=== PATIENT | female | born 1975 | race Caucasian/White ===

== ENCOUNTER 2025-02-13 15:06 | Outpatient (AMB) | payer BC, SELFPAY ==
--- OUTSIDE RECORDS SUMMARY | 2016-05-26 07:00 | XMS_ITS | Continuity of Care Document ---
Author Organization [id number] Address [address] [place] [address] Phone Care Team Providers Care Script Manager Name Role Phone Melany Woodward DO Unavailable Unavailab le Allergies, Adverse Reactions, Alerts Substance Reaction Status Criticality No Known Allergies Active No Inform ation Medications Medication Instructions Dosage Effective Dates (start - stop) Status Comments Depo-Provera 150 mg/mL intramuscular suspension inject 1 milliliter by intramuscular route every 3 months 150 MG - Active FLUDROCORTISONE ACETATE (unknown strength) take 1 tablet by oral route every day Not Available - Active 0.15 mg qd A-HYDROCORT (unknown strength) Not Available - Active 17.5 mg qd Flexeril 10 mg tablet take 1 tablet by oral route every evening 10 MG - Active Plaquenil 200 mg tablet take 1 tablet by oral route every 2 days 200 MG - Active prednisone 5 mg tablet take 1 tablet by oral route every day 5 MG - Active warfarin 7.5 mg tablet take 1 tablet by oral route every day 7.5 MG - Active 7.5 Wednesday - 10mg Wed,Wed LIQUID CALCIUM 600-VIT D3 (unknown strength) Not Available - Active calcium vitamin D600mg/800 iu qd Procedures Procedure Date PREVENTIVE MED ESTABLISHED PT 40-64YRS F OFFICE/OUTPT EM EST DETAILED/MODERATE 25 MINS OFFICE/OUTPT EM EST COMPREHENSIVE/HIGH 4 0 MINS OFFICE/OUTPT EM EST NURSE MINIMAL 5 MINS SPECIAL REPORTS OR FORMS OFFICE/OUTPT EM EST NURSE MINIMAL 5 MINS IMMUNIZATION ADMIN SUBQ/IM 1 VACCINE Jan FLU VAC NO PRSV 4 KAZ 3 YRS+ OFFICE/OUTPT EM EST COMPREHENSIVE/HIGH 4 0 MINS SPECIAL REPORTS OR FORMS OFFICE/OUTPT EM EST NURSE MINIMAL 5 MINS OFFICE/OUTPT EM EST COMPREHENSIVE/HIGH 4 0 MINS SPECIAL REPORTS OR FORMS Results Test Name Date and Time Measure Units Reference Range Abnormal Flag Status Comments Panel Description: CBC With Differential/Platele t Final Final Panel Description: Comp. Metabolic Panel (14) F inal Final Panel Description: Lipid Panel Final Final Panel Description: Prothrombin Time (PT) Final Final Panel Description: Calcidiol [Mass/volume] in Se rum or Plasma Final Final Advance Directives Directive Yes / No Effective Date File Name No Information Encounters Encounter Description Practice Location Reason(s) For Visit Diagnoses Date Provider Providers Copied on Encounter PREVENTIVE MED ESTABLISHED PT 40-64YRS [id number] [facility], [address], [place], [place], [facility], tel:[phone] [facility] [employer] physical (chief complaint) Body mass index (BMI) 33.0-33.9, adultPhysical examScreening for breast cancerAntiphos pholipid syndrome 7 Trace Mosley. [address] [facility], [address], [id number], [place]. tel:[phone] Referring Provider: Melany Ann, [address], [address] . tel:[phone] OFFICE/OUTPT EM EST DETAILED/MOD ERATE 25 MINS [id number] [facility], [address], [place], [address], tel:[phone] [facility] Follow Up of abdominal pain (chief complaint) Calculus of gallbladder and bile duct with acute and chronic cholecystitis without obstructionEnc ounter for Depo-Provera contraception 6 Trace Mosley. [address] [facility], [facility] [address], [place], [place], [id number], [place]. tel:[phone] Referring Provider: Melany Ann, [address] [facility] [address], [place], [address] . tel:[phone] OFFICE/OUTPT EM EST COMPREHENSIV E/HIGH 40 MINS [id number] [facility], [address], [place], [facility], [place] tel:[phone] [facility] flank pain (chief complaint) Kidney stoneGallstone sScreening for cervical cancer 6 Trace Mosley. [address] [facility] [address], [place], [place], [id number], [place]. tel:[phone] Referring Provider: Melany Ann, [address] [facility] [address], [place], [address] . tel:[phone] OFFICE/OUTPT EM EST NURSE MINIMAL 5 MINS [id number] [facility], [address], [place], [address], [place] tel:[phone] [facility] Lab and Depo shot (chief complaint) No Information 6 Trace Mosley. [address] [facility] [address], [place], [place], [id number], [place]. tel:[phone] Referring Provider: Melany Ann, [address] [facility] [address], [place], [address] . tel:[phone] OFFICE/OUTPT EM EST NURSE MINIMAL 5 MINS [id number] [facility], [address], [place], [address], [place] tel:[phone] [facility] [place] [facility] Depo provera (chief complaint)flu shot (chief complaint) Encounter for management and injection of depo-ProveraNe eds flu shot 5 Trace Mosley. [address] [facility], [facility] [address], [place], [place], [id number], [place]. tel:[phone] Referring Provider: Melany Ann, [address] [facility] [address], [place], [address] . tel:[phone] OFFICE/OUTPT EM EST COMPREHENSIV E/HIGH 40 MINS [id number] [facility], [address], [place], [facility], [place] tel:[phone] [facility] Follow Up of antiphospholipi d antibody syndrome (chief complaint) Antiphospholip id antibody syndrome 5 Trace Mosley. [address] [facility], [facility] [address], [place], [place], [id number], [place]. tel:[phone] Referring Provider: Melany Ann, [address], [address] . tel:[phone] OFFICE/OUTPT EM EST NURSE MINIMAL 5 MINS [id number] [facility], [address], [place], [address], [place] tel:[phone] [facility] [place] [facility] Depo shot (chief complaint) Encounter for management and injection of depo-Provera 5 Marshajay Mosley. [address] [facility], [facility] [address], [place], [place], [address], [place]. tel:[phone] Referring Provider: Melany Ann, [address] [facility] [address], [place], [address] . tel:[phone] OFFICE/OUTPT EM EST COMPREHENSIV E/HIGH 40 MINS [id number] [facility], [address], [place], [address], [place] tel:[phone] [facility] antiphospholipi d antibody syndrome (chief complaint)lupus (chief complaint)adren al insufficiency (chief complaint) Antiphospholip id antibody syndromeLupusA drenal insufficiencyL ipid screening 201 [address] Mosley. [address] [facility], [facility] [address], [place], [place], [address], . tel:[phone] Referring Provider: Melany Ann, [address] [facility] [address], [place], [address] . tel:[phone] Family History Family Member Type Diagnosis Age At Onset Sister Problem (finding) Alive and well Father Problem (finding) Alive and well Mother Problem (finding) Alive and well Immunizations Vaccine Date Status Comments Influenza, seasonal, injectable administered Source: New Immuniza tion Record Payers Payer name Insurance type Covered constitution party ID Authoriza tion(s) [facility] [id number] [facility] CI [id number] Social History Type Description Quantity Date Captured Comments Alcohol Use Details Caffeine Use Details Unknown Tobacco Use Status Never smoked tobacco 2016 Smoking Status Never smoker Non-Smoking Tobacco Use Details : No Details Available : No Details Available Sex Female Chief Complaint And Reason For Visit From encounter dated '05/26/2016 12:00'. physical (chief complaint). Description: Due BW, pap, mammo. No CAD in family. Reason For Referral Reason For Referral No Information Plan Of Treatment Date Type Action Status Patient Education Learning About Physical Activity completed Patient Education Ultrasound of the Abdom en: About This completed Patient Education Taking Warfarin Safely: After Your Vis completed Patient Education Implant for Contr ol: After Your completed Patient Education Antiphospholipid Syndro me: After Your completed Future Order: Lab Order PT, INR ([id number]), Sent on: , Sent on: Sent Future Order: Lab Order Thyroid Profile II ([id number]), Sent on: Sent Future Order: Lab Order TSH ([id number]), Sen t on: Sent Future Order: Lab Order CBC With Differential/Platelet ([id number]), Sent on: Sent Future Order: Lab Order Comp. Me tabolic Panel (14) ([id number]), Sent on: Sent Future Order: Lab Order PT, INR ([id number]), Sent on: Sent Future Order: Lab Order Lipid Pa raisa ([id number]), Sent on: Sent Future Order: Lab Order Vitamin D 25-Hydroxy, D2 + D3 ([id number]), Sent on: Sent History Of Present Illness Encounter Date Complaint History Of Prese nt Illness physical Due BW, pap, steven mo. No CAD in family. Follow Up of abdominal pain Onse t: 1 Month. The severity of the problem is moderate. The problem has not changed. The symptoms are recurring. The location is diffuse. The quality of the pain is burning. These symptoms occur after meals. The patient denies aggravating factors. The patient denies relieving factors. Associated symptoms include back pain. Pertinent negatives include dyspnea, heartburn, hematuria, rash, vaginal discharge, weight gain and weight loss.Additional information: Chronic cholycystitis. flank pain Onset: gradually . Pain level is moderate-severe. Duration is > 1 hour. The problem occurs intermittently and is getting worse. Location of pain is right flank. Prior stone type includes calcium oxalate. Symptom is aggravated by lying. There is radiation to the abdomen. Context includes history of prior stone(s) and hx gall stones. No recent ER visit was made. There are no relieving factors. There are no associated symptoms. Pertinent negatives include dysuria, hematuria and vomiting. Lab and Depo shot Depo provera flu shot Follow Up of antipho spholipid antibody syndrome The symptoms began year ago and generally lasts day. The symptoms are reported as being moderate. The symptoms occur constantly. Aggravating factors include nothing. Relieving factors include medication. She states the symptoms are chronic. Managed by specialists. Needs PT/INR. Depo shot adrenal insufficiency She states the symptoms are chronic and are controlled. lupus Severity level i s moderate. Systems involved include pulmonary. It occurs randomly. The problem is flaring up. Risk factors include child bearing age and female gender. Relieving factors include corticosteroids and immunosuppressants. Relevant history includes positive phospholipid antibodies. Additional information: Followed by specialist. Recent flare ups antiphospholipid antibody syndro me The symptoms are reported as being moderate. The symptoms occur daily. She states the symptoms are chronic and are fairly controlled. Follows with specialists. On coumadin. due PT/INR Functional Status Date Functional Assessmen t No Information Instructions Date Instruction Additional Infor mation No Information Assessments Type Assessment Date No Information Mental Status Date Cognitive Assessment Orientation - [place] ed to time, place, person, situation. Patient Care Teams Name Effective Dates (start - stop) Status Members No Information
--- OUTSIDE RECORDS SUMMARY | 2022-01-01 07:11 | XMS_ITS | Encounter Summary ---
Author Organization [facility] Address [address] [place] [address] Care Team Providers Care Glove Machine Operator Name Role Phone Melany Woodward DO Primary Care Provider + Encounter Details Date Type Department Care Team (Late st Contact Info) Description 01/01/2022 8:11 AM EDT Hospital Encounter [facility] [address] [place] [phone] Leon Mueller MD [address] [place], [place] [id number] Social History Tobacco Use Types Packs/Day Years Used Date Smoking Tobacco: Never Smokeless Tobacco: Never Alcohol Use Standard Drinks/Week Comments Yes 0 (1 standard drink = 0.6 oz pur e alcohol) rarely Housing Instability Answer Date Recorde d Are you worried that in the next 2 months you may not have stable housing? No 02/22/2024 Food Access & Nutrition Answer Date Rec orded Do you have access to a vari ety of food including fruits and vegetables? Yes 02/22/2024 Access to Healthcare Answer Date Record ed Within the last 3 months, arian valdez many times did you visit the emergency department for your medical care? 0 02/22/2024 Health Literacy Answer Date Recorded How often do you need to hav e someone help you when you read instructions, pamphlets, or other written material from your doctor or pharmacy? Never 02/22/2024 Caregiver: How often do you need to have someone help you when you read instructions, pamphlets, or other written material from your doctor or pharmacy? Not on file 02/22/2024 Financial Risk Answer Date Recorded How hard is it for you to pa y for the very basics like food, housing, medical care, and air conditioning / heating? Hard 02/22/2024 Transportation Answer Date Recorded Has the lack of transportati on kept you from meetings, work, or from getting things needed for daily living? No Has the lack of transportati on kept you from medical appointments or from getting medications? No 02/22/2024 Social Isolation Answer Date Recorded How often do you feel lonely or isolated from th ose around you? Rarely 02/22/2024 Food Risk Answer Date Recorded Within the past 12 months we worried whether our food would run out before we got money to buy more. Sometimes true 024 Within the past 12 months th e food we bought just didn't last and we didn't have money to get more. Never true 02/22/2024 Interpersonal Safety Answer Date Record ed Physical Abuse Unrecognized value 07/14/2023 Verbal Abuse Unrecognized value 07/14/2023 Comments No Sex and Gender Information Value Date Recorded Sex Assigned at Female 03/20/2024 9:27 AM EST Legal Sex Female 2:00 PM EDT Gender Identity Female 03/20/2024 9:27 AM EST Sexual Orientation Not on file Occupation Industry Job Start Date Job End Date [employer] Not on file Not on file Not on file COVID-19 Exposure Response Date Recorded In the last 10 days, have yo u been in contact with someone who was confirmed or suspected to have Coronavirus/COVID-19? No / Unsure 10/01/2022 12:55 PM EDT documented as of this encounter Plan of Treatment Upcoming Encounters Date Type Department Care Team (Late st Contact Info) Description 02/14/2025 11:15 AM EST Consult Pulmonology - [place] [address] [facility] [address] [place] [address] Jana Corona MD [address] [place] [phone] 04/03/2025 11:00 AM EST Office Visit Adult Medicine [facility] [address] [place], [place] [phone] Carlito Pelaez MD [address] [place], [place] documented as of this encounter Visit Diagnoses Not on filedocumented in this encounter Care Teams Glove Machine Operator Relationship Specialty Start Date End Date Melany Woodward DO PCP - General 12/12/21 05/07/22 documented as of this encounter
[2025-02-13 15:10] VITALS: BP 112/74; PULSE 103; O2SAT 97; BMI 33.4
--- NOTE | 2025-02-13 15:10 | HO.NEPHOV_ITS ---
Vital Signs 02/13/25 15:10 Height 5 ft 5 in Weight 201 lb BMI 33.4 BP 112/74 Blood Pressure Location Lt brachial Position Sitting Pulse 103 H Pulse Source Pulse Oximeter Pulse Oximetry (%) 97 Oxygen Delivery Method Room Air Intake Visit Reasons: Ext systemic lupus erythematosus Qa Software Tester Required: No Accompanied by: Self / Same As Patient Allergies cephalexin Allergy (Unknown, Verified 02/13/25 15:12) Unknown nitrofurantoin Allergy (Unknown, Verified 02/13/25 15:12) Unknown Medication List - Last Reconciled 02/13/25 by Jose Daniel Bruce MD belimumab (Benlysta) 200 mg subcut QWEEK fludrocortisone 0.1 mg PO DAILY hydrocortisone 20 mg PO DAILY mycophenolate mofetil 1,000 mg PO BID prednisone 5 mg PO DAILY PRN warfarin 5 mg PO DAILY warfarin 1 mg PO DAILY HPI Comments Details: 49-year-old woman with a history of SLE referred for establishing nephrology care She was diagnosed with antiphospholipid antibody syndrome of the age of 13. Subsequently she was diagnosed with SLE. She has had multiple blood clots. History of adrenal insufficiency. History of renal stones. History of normal renal function. No significant hematuria or proteinuria in the past. History of 4 miscarriages. Currently she is on anticoagulation she has been under the care of diploma pharmacy technician and is currently on Benlysta and mycophenolate mofetil. She is on prednisone p.r.n.. History of prednisone use in the past. History of osteopenia last bone density testing was few years ago She has recently moved from [place]. [facility] Medical History (Updated 02/13/25 @ 15:28 by Jose Daniel Bruce MD) History of kidney stones SLE (systemic lupus erythematosus related syndrome) Pulmonary fibrosis Protein S deficiency Prediabetes Osteopenia Obesity NSIP (nonspecific interstitial pneumonitis) Microscopic hematuria History of pulmonary embolism Coumadin syndrome Antiphospholipid syndrome Adrenal insufficiency, primary Review of Systems Const Reports as per HPI, Denies anorexia, Denies fatigue, Denies fever(s) and Denies headache(s) Eyes Denies blurry vision ENT Denies headache(s) Card Denies chest pain, Denies pedal edema and Denies dyspnea Resp Denies cough, Denies hemoptysis and Denies dyspnea GI Denies diarrhea, Denies nausea and Denies vomiting Denies hematuria, Denies urinary frequency and Denies urinary hesitancy Neuro Denies confusion, Denies headache(s) and Denies focal weakness Psych Denies confusion Endo Denies cold intolerance, Denies fatigue and Denies polyuria Physical Exam Vital Signs: Last Vital Signs Pulse 103 H 02/13/25 15:10 BP 112/74 02/13/25 15:10 Pulse Ox 97 02/13/25 15:10 Oxygen Delivery Method Room Air 02/13/25 15:10 BMI result Body Mass Index 33.4 Const General: No confusion Nutritional Appearance: well nourished Orientation/consciousness: No confusion HEENT Head: No normal to inspection Mouth: moist mucous membranes Neck Neck: Yes supple and Yes no JVD Resp Auscultation: clear to auscultation bilaterally, no rales and No rub present Cardio Jugular venous distension: no JVD Palpation: no palpable S3 and no palpable S4 Heart sounds: no rubs GI Palpation (GI): Soft to palpation and nontender Percussion: No Fluid wave present General: Yes no CVA tenderness Back/Spine/Pelvis Back: no CVA tenderness Skin General skin exam: no rashes or lesions noted Neuro General: No confusion Extrem General: Yes no pedal edema and No clubbing Results Reviewed Results Reviewed: December 2024 Urine protein creatinine ratio 0.18. Serum complement C3-C4 were normal Hemoglobin 12.9 Platelets 117536 Cholesterol 204 HDL 84 LDL 87 Sodium 136 potassium 3.5 CO2 27 BUN 16 creatinine 0.63 LFTs normal Assessment & Plan Assessment & Plan (1) SLE (systemic lupus erythematosus related syndrome): Code(s): M32.9 - Systemic lupus erythematosus, unspecified Category: Medical Plan 49-year-old woman with longstanding SLE. At the present time renal function stable with a creatinine of 0.63. No significant hematuria or proteinuria on urinalysis. Overall there is no renal involvement at this time. Continue to monitor renal function closely along with a urine protein creatinine ratio. She has a history of nephrolithiasis however she has been asymptomatic If she has any back pain or renal colic we will consider further imaging. History of adrenal insufficiency. She is on Florinef. Blood pressure is acceptable. Discussed orthostatic precautions which she has been following SLE Waiting for rheumatology evaluation follow-up Today I have not made any changes to her medications. Answered all her questions. We will schedule follow up in the next 1 year unless she has any issues in the interim. I will be happy to see her as needed. Orders: Orders UA and rflx microscopic 1 Year M32.9 - Systemic lupus erythematosus, unspecified Basic Metabolic Panel 1 Year M32.9 - Systemic lupus erythematosus, unspecified Creatinine Urine 1 Year M32.9 - Systemic lupus erythematosus, unspecified Total Protein Urine Random 1 Year M32.9 - Systemic lupus erythematosus, unspecified Coding Level of Care Code New Pt Level 4 (17517) Diagnoses SLE (systemic lupus erythematosus related syndrome) M32.9
--- OUTSIDE RECORDS SUMMARY | 2025-02-13 16:50 | XMS_ITS | Encounter Summary ---
Author Organization [facility] Address [address] [place] [address] Care Team Providers Care Heart Nurse Name Role Phone Carlito Pelaez MD Primary Care Provider Encounter Details Date Type Department Care Team (Late st Contact Info) Description 01/03/2025 Results Follow-Up Adult Medicine [facility] [address] [place], [place] [phone] Carlito Pelaez MD [address] [place], [place] Social History Tobacco Use Types Packs/Day Years [...] file Not on file Not on file documented as of this encounter Plan of Treatment Upcoming Encounters Date Type Department Care Team (Late st Contact Info) Description 02/14/2025 11:15 AM EST Consult Pulmonology - [place] [address] [facility] [address] [place] [address] Jana Corona MD [address] [place] [phone] 04/03/2025 11:00 AM EST Office Visit Adult Medicine [address] [address] Carlito Pelaez MD [address] [place] [address] documented as of this encounter Visit Diagnoses Not on filedocumented in this encounter Additional Health Concerns Assessment Noted Time PHQ-9 Depression Total Score: 0 12/26/19 9:40 AM EDT documented as of this encounter Care Teams Heart Nurse Relationship Specialty Start Date End Date Carlito Pelaez MD [address] [place] [address] PCP - General Internal Medicine 09/05/24 documented as of this encounter
--- OUTSIDE RECORDS SUMMARY | 2025-02-13 16:53 | XMS_ITS | Clinical Summary ---
Author Organization [facility] Address [address] [place] [address] Phone Care Team Providers Care Manager Underwriting Name Role Phone Carlito Pelaez MD Primary Care Provider Allergies Active Allergy Reactions Criticality Noted Date Comments Cephalexin 12/09/2021 Nitrofurantoin Monohyd/M-Cryst 12/09 Medications CALCIUM CARBONATE-VITAMIN D3 ORAL Take one daily Activ e syringe, disposable, 3 mL syringe USE DIRECTED TO INJECT HYDROCORTISONE 05/09/19 21 Active miscellaneous medical supply kitIndications:Ad renal insufficiency, primary ([facility] V24, [facility] V28) SOLUCORTEF 100 mg/2ml vial- Administer 100 mg Intramuscularly in the event of an emergency for Adrenal Insufficiency 1 each 11/05/19 23 Active Solu-CORTEF Act-O-Vial, PF, 100 mg/2 mL recon soln injection INJECT 100MG INTRAMUSCULARLY IN THE EVENT OF AN EMERGENCY FOR ADRENAL INSUFFICIENCY 1 each 2 11/14/19 23 Active belimumab (Benlysta) 200 mg/mL auto-injectorIndi cations:SLE (systemic lupus erythematosus related syndrome) ([facility] V24, [facility] V28) INJECT 1 PEN UNDER THE SKIN EVERY 7 DAYS. 12 each 3 05/22/19 25 Active warfarin (COUMADIN) 1 mg tabletIndications :Interstitial lung disease ([facility] V24, [facility] V28),Adrenal insufficiency, primary (CMS/HCC V24, [facility] V28),SLE (systemic lupus erythematosus related syndrome) ([facility] V24, [facility] V28),Coumadin syndrome,Coagulop athy ([facility] V24),Microscopic hematuria TAKE 1 TABLET DAILY DIRECTED. TOTAL DAILY DOSE IS 6 MG, TOGETHER WITH A 5MG PILL. 90 tablet 3 08/08/19 25 Active warfarin (COUMADIN) 5 mg tabletIndications :Interstitial lung disease ([facility] V24, [facility] V28),Adrenal insufficiency, primary ([facility] V24, [facility] V28),SLE (systemic lupus erythematosus related syndrome) ([facility] V24, [facility] V28),Coumadin syndrome,Coagulop athy ([facility] V24),Microscopic hematuria TAKE 1 TAB BY MOUTH WEDNESDAY,WEDNESDAY,F ,WEDNESDAY &WEDNESDAY, TAKE 1.5 TABLETS WEDNESDAY,WEDNESDAY 90 tablet 3 08/08/19 25 Active predniSONE (DELTASONE) 5 mg tabletIndications :SLE (systemic lupus erythematosus related syndrome) ([facility] V24, [facility] V28) 3 tablets daily for 5 days then 2 tablets daily for 5 days then 1 tablet daily for 5 days then stop 30 tablet 10/03/19 25 Active fludrocortisone (FLORINEF) 0.1 mg tabletIndications :Adrenal insufficiency, primary ([facility] V24, [facility] V28) TAKE 1 TABLET (0.1 MG TOTAL) BY MOUTH DAILY 90 tablet 1 11/01/19 25 Active hydrocortisone (CORTEF) 5 mg tabletIndications :Adrenal insufficiency, primary ([facility] V24, [facility] V28) TAKE 3 TABLETS BY MOUTH IN THE MORNING, 1 TABLET IN THE AFTERNOON AND 1 TABLET IN THE EVENING 450 tablet 2 11/01/19 25 Active mycophenolate (CELLCEPT) 500 mg tabletIndications :SLE (systemic lupus erythematosus related syndrome) ([facility] V24, [facility] V28) TAKE 2 TABLETS BY MOUTH TWICE A DAY 360 tablet 01/11/20 25 Active Active Problems Patient Care Coordination No te Formatting of this note migh t be different from the original. 48 y.o. 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 Works in [employer] service. Problem Noted Date Diagnosed Date Abnormal INR 06/06/2024 Abnormal echocardiogram 01/11/2024 Assessment & Plan (01/11/2024 11:13 AM EDT): Echocardiogram done 12/01/2023 showed abnormal global longitudinal strain. NSIP (nonspecific interstiti al pneumonia) ([facility] V24, [facility] V28) 09/29/2023 Assessment & Plan (01/11/2024 11:13 AM EDT): Has more of a reticular nodular peribronchovascular infiltrate pattern. Not convincing for NSIP. She does have underlying SLE but I am concerned about a possible infectious process here. 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 On Benlysta and CellCept. Last CT of the chest done September 2022. Started transplant evaluation at but did not follow-up. Good functional capacity at this time, able to walk 1 mile. History of pulmonary embolism 09/29/2023 Assessment & Plan (01/11/2024 11:13 AM EDT): Has factor V Leyden, protein C, protein S deficiency and lupus anticoagulant. On lifelong Coumadin. Assessment & Plan (09/29/2023 1:54 PM EDT): Has factor V Leyden, protein C, protein S deficiency and lupus anticoagulant. On lifelong Coumadin. Encounter for colorectal cancer screening 2022 Factor V Leiden ([facility] V24) 09/07/2022 Protein S deficiency ([facility] V24) 09/07/2022 Pulmonary fibrosis ([facility] V24, [facility] V28) High risk medication use 02/19/2022 Adrenal insufficiency, primary ([facility] V24, [facility] V28) 12/09/2021 Antiphospholipid syndrome ([facility] [place]24) 12/10/19 Assessment & Plan (02/19/2022 12:50 PM EST): On Coumadin, monitoring INR with hematology Coagulopathy ([facility] V24) 12/09/2021 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 Not at high risk for falls Recommend vitamin D and weightbearing exercise as tolerated day Her FRAX score is on the DEXA 02/2021 indicated low risk for fracture so treatment was deferred Recommend follow-up DEXA next year. Should take precautions against falls. Prediabetes 12/09/2021 SLE (systemic lupus erythema tosus related syndrome) ([facility] V24, [facility] V28) 12/09/2021 Assessment & Plan (01/11/2024 11:13 AM EDT): On CellCept and Benlysta. Follows with rheumatology. Assessment & Plan (09/29/2023 1:55 PM EDT): On CellCept and Benlysta. Follows with rheumatology. Assessment & Plan (10/01/2022 3:20 PM EDT): Patient with history of lupus, lupus anticoagulant, multiple connective tissue disorders at this time started on Benlysta that seem to have improved patient's underlying condition and as a fact improve also her pulmonary condition. Continue management per rheumatology from pulmonary standpoint continue on transplant evaluation. Assessment & Plan (05/07/2022 5:23 PM EST): Continue continue management per rheumatology continues to be stable from her lupus. Assessment & Plan (02/19/2022 12:44 PM EST): SLE associated with interstitial lung disease stable Labs will be ordered to complete evaluation and for medication monitoring Recommend continuing Benlysta subcu once weekly and mycophenolate same dose Continue Rheum follow-up around every 3 months Systemic lupus erythematosus (CMS/HCC V24, CMS/H CC V28) 05/18/2014 Overview (06/06/2024): (Problem was migrated from [employer] on 07/29/2016) Resolved Problems Problem Noted Date Diagnosed Date Resolved Date Chronic respiratory insufficiency 12/09/2021 09/29/2023 Interstitial lung disease ([facility]/HCC V24, CMS/HCC V28) 12/09/2021 09/29/2023 Assessment & Plan (10/01/2022 3:19 PM EDT): Undergoing transplant relation, NSIP pattern excepting work-up, continue transplant follow-up, pulmonary rehab. Assessment & Plan (05/07/2022 5:21 PM EST): Patient with surgery for lung disease, high risk for open lung biopsy due to multiple medical problems such as lupus anticoagulant, protein C, protein as deficiency patient has had blood clots and PE even on bridging with Lovenox. Continue Coumadin and continue follow-up with hematology oncology. Patient already had a transplant evaluation at time not a candidate they will continue to follow-up in 6 months. Recommended getting 2D echo to rule out pulmonary hypertension as well as starting Ofev and plus or minus PCP prophylaxis. Will discuss with ID PCP prophylaxis management, if warranted. Assessment & Plan (02/19/2022 12:47 PM EST): Symptomatically improved, has been referred to lung transplant center in [place] Recommend continuing Benlysta and mycophenolate mofetil Oxygen dependent 12/09/2021 10/01/2022 Assessment & Plan (10/01/2022 3:19 PM EDT): Patient at the time not requiring oxygen she had a 6-minute walk test at a transplant center and they told her she does not need the oxygen she is not currently using and is not having any desaturation episodes. If at any point in time clinical picture should change we can reorder oxygen again. Assessment & Plan (05/07/2022 5:22 PM EST): Continue supplemental O2 recent had a 6-minute walk test transplant ablation and patient desatted so needs to continue oxygen on ambulation and at rest to target saturation >90% Pneumonia 12/09/2021 10/01/2022 Encounters Date Type Department Care Team Description 02/01/2025 Anticoagulation - Warfarin Visit [facility] [address] [phone] Carlito Pelaez MD Antiphospholipid syndrome ([facility] V24) (Primary Dx); Coumadin syndrome; History of pulmonary embolism; Factor V Leiden ([facility] V24); Protein S deficiency ([facility]/HCC V24) 01/31/2025 11:30 AM EDT Lab Draw [address] Antiphospholipid syndrome ([facility]/HCC V24); History of pulmonary embolism; Factor V Leiden ([facility] V24); Protein S deficiency ([facility] V24) 01/03/2025 Results Follow-Up Adult [address] [phone] Carlito Pelaez MD 01/02/2025 Anticoagulation - Warfarin Visit Coumadin [address] [phone] Carlito Pelaez MD Antiphospholipid syndrome ([facility]/HCC V24) (Primary Dx); Coumadin syndrome; History of pulmonary embolism; Factor V Leiden ([facility] V24); Protein S deficiency ([facility]/HCC V24) 01/01/2025 11:30 AM EDT Office Visit Adult [address] [phone] Kesha Hinson PA Encounter to establish care (Primary Dx); Need for tetanus, diphtheria, and acellular pertussis (Tdap) vaccine; Need for prophylactic vaccination and inoculation against influenza; Encounter for screening for lipid disorder; Prediabetes; SLE (systemic lupus erythematosus related syndrome) ([facility] V24, [facility] V28); Antiphospholipid syndrome ([facility]24); Coumadin syndrome; ILD (interstitial lung disease) ([facility] V24, [facility] V28); Abnormal echocardiogram; Adrenal insufficiency, primary ([facility] V24, [facility] V28) 01/01/2025 Anticoagulation - Warfarin Visit Coumadin Clinic [address] [phone] Bekah Lam LPN Antiphospholipid syndrome ([facility] V24) (Primary Dx); Coumadin syndrome; History of pulmonary embolism; Factor V Leiden ([facility] V24); Protein S deficiency ([facility] V24) from Last 3 Months Immunizations Immunization Administration Dates Next Due Influenza Quadrivalent, with preservative (Fluzone; Afluria) 6mo and older 02/01/2020 Influenza trivalent, MDCK, 0 .5mL, preservative free (Flucelvax) 6mo and older 01/01/2025 Influenza trivalent, with pr eservative (Fluzone; Afluria) 6mo and older 01/23/2015,12/14/2011 Moderna SARS-CoV-2 COVID-19, mRNA, LNP-S, preservative free 03/08/2021,07/08/2020 Pneumococcal conjugate 20 va lent (Prevnar 20, PCV 20) 2mo and older 05/08/2021 Pneumococcal polysaccharide 23 valent (Pneumovax 23) 2yo and older 05/09/2021 Tdap Tetanus diptheria acell ular pertussis (Boostrix; Adacel) 7yo and older 01/01/2025 Surgical History Surgery Date Site/Laterality Comments ADENOIDECTOMY GALLBLADDER SURGERY WISDOM TOOTH EXTRACTION CHOLECYSTECTOMY 2017 Medical History Medical History Date Comments Abnormal cervical Papanicolaou smear [place]'s disease ([facility] V24, [facility] V28) Spontaneous History of DVT of lower extremity Lupus Lung disease [id number] Kidney stone 2015 Recurrent loss, antepartum condition o r complication 2004 Pancreatitis [id number] NSIP (nonspecific interstiti al pneumonia) ([facility]24, [facility] V28) 09/29/2023 Urinary tract infection 2004 Family History Medical History Relation Name Comments No Known Problems Father Melanoma Father's Brother Pancreatitis Maternal Grandfather Deep vein thrombosis Maternal Grandmother Supraventricular tachycardia Mother memory loss Diabetes Paternal Grandfather Heart failure Paternal Grandfather ESRD Paternal Grandmother OCD Sister 1 Ofelia Psychosis Sister 1 Ofelia Schizophrenia Sister 1 Ofelia Supraventricular tachycardia Sister 2 Relation Name Status Comments Father Alive Father's Brother Maternal Grandfather Maternal Grandmother Mother Alive Paternal Grandfather Paternal Grandmother Sister 1 Ofelia Alive Sister 2 Alive Social History Tobacco Use Types Packs/Day Years Used Date Smoking Tobacco: Never Smokeless Tobacco: Never Tobacco Cessation:Counseling Given: Not Answered Alcohol Use Standard Drinks/Week Comments Yes 0 [...] Record ed Within the last 3 months, ho w many times did you visit the emergency [...] file Not on file Not on file Obstetrics History * This document contains information received from the source organization and may not represent a complete record from that organization. Para Term AB IAB SAB Ectopic Multiple Livin g Live Births 5 0 0 0 0 0 0 0 Date Outcome GA Total Labor Labor/2nd/3rd Weight Sex Type Anes PTL [place] A1 A5 Name Clin Last Filed Vital Signs Vital Sign Reading Time Taken Comments Blood Pressure 113/70 01/01/2025 11:43 AM EDT Pulse 88 01/01/2025 11:43 AM EDT Temperature 35.7 C (96.2 F) 01/01/2025 11:43 AM EDT Respiratory Rate 15 01/01/2025 11:4 3 AM EDT Oxygen Saturation 98% 01/01/2025 11: 43 AM EDT Inhaled Oxygen Concentration - - Weight 90.6 kg (199 lb 12.8 oz) 025 11:43 AM EDT Height 165.1 cm (5' 5 ) 01/01/2025 11:4 3 AM EDT Body Mass Index 33.25 01/01/2025 11:43 AM EDT Plan of Treatment Upcoming Encounters Date Type Department Care Team (Late st Contact Info) Description 02/14/2025 11:15 AM EST Consult Pulmonology - [address] [place] [phone] Jana Corona MD [address] [place] [phone] 04/03/2025 11:00 AM EST Office Visit Adult Medicine [facility] [address], [place] [phone] Carlito Pelaez MD [address] [place], [place] Health Maintenance Due Date Last Done Comments Hepatitis B Vaccines (1 of 3 - 19+ 3-dose series) 1992 Zoster Vaccines (1 of 2) 1992 RSV Immunization Adult Patients (1 - Risk 50-74 years 1-dose series) 12/28/2023 COVID-19 Vaccine ( season) 2024 03/08/2021, 08/09/2020, 07/08/2020 Social Influencers of Health Screening 02/21/2025 02/22/2024 Breast Cancer Screening 03/20/2026 03/20/20, 01/26/2023, 10/09/2021 Cervical Cancer Screening: HPV 02/21/2029 02/22/2024 Cholesterol Screening (Lipid Panel) 01/02/2030 01/02/2025, 02/23/2023, 08/26/2022, Additional history exists Colorectal Cancer Screening: Colonoscopy 07/13/2033 07/14/2023 DTaP,Tdap,and Td Vaccines (2 - Td or Tdap) 01/01/2035 01/01/2025 HIV Screening Completed 04/30/2020 Pneumococcal Vaccine: 50+ Years Completed 05/09/2021, 05/08/2021 Hepatitis C Screening Completed 08/26/2022 Depression Screening Completed 12/25/2024 Influenza Vaccine Completed 01/01/2025, , 01/23/2015, Additional history exists HIB Vaccines Aged Out No longer eligi ble based on patient's age to complete this topic HPV Vaccines Aged Out No longer eligi ble based on patient's age to complete this topic Hepatitis A Vaccines Aged Out No long er eligible based on patient's age to complete this topic IPV Vaccines Aged Out No longer eligi ble based on patient's age to complete this topic MMR Vaccines Aged Out No longer eligi ble based on patient's age to complete this topic Meningococcal ACWY Vaccine Aged Out N o longer eligible based on patient's age to complete this topic Meningococcal B Vaccine Aged Out No l onger eligible based on patient's age to complete this topic RSV Immunization Patients Under 20 months Aged Out No longer eligible based on patient's age to complete this topic Varicella Vaccines Aged Out No longer eligible based on patient's age to complete this topic Procedures Procedure Name Priority Date/Time Associated Diagnosis Comments PROTHROMBIN TIME WITH INR STAT 01/31/2025 11:34 AM EDT Antiphospholipid syndrome ([facility] V24) History of pulmonary embolism Factor V Leiden ([facility]) Protein S deficiency ([facility] V[facility]) CBC WITH AUTO DIFFERENTIAL Routine 01/02/2025 7:43 AM EDT SLE (systemic lupus erythematosus related syndrome) ([facility], [facility] V28) COMPREHENSIVE METABOLIC PANEL Routine 01/02/2025 7:43 AM EDT SLE (systemic lupus erythematosus related syndrome) ([facility], [facility] V28) LIPID PANEL WITH REFLEX TO DIRECT LDL Routine 01/02/2025 7:43 AM EDT Encounter for screening for lipid disorder HEMOGLOBIN A1C Routine 01/02/2025 7:43 AM EDT Prediabetes CBC AND DIFFERENTIAL Routine 01/02/2025 7:43 AM EDT SLE (systemic lupus erythematosus related syndrome) ([facility], [facility] V28) PROTEIN AND CREATININE WITH RATIO, URINE Routine 01/02/2025 7:43 AM EDT SLE (systemic lupus erythematosus related syndrome) ([facility], [facility] V28) C4 COMPLEMENT Routine 01/02/2025 7:43 AM EDT SLE (systemic lupus erythematosus related syndrome) ([facility], [facility] V28) C3 COMPLEMENT Routine 01/02/2025 7:43 AM EDT SLE (systemic lupus erythematosus related syndrome) ([facility]/HCC V24, [facility]/HCC V28) ANTI-DNA ANTIBODY, DOUBLE-STRANDED Routine 01/02/2025 7:43 AM EDT SLE (systemic lupus erythematosus related syndrome) ([facility] V24, [facility] V28) C-REACTIVE PROTEIN Routine 01/02/2025 7: 43 AM EDT SLE (systemic lupus erythematosus related syndrome) ([facility] V24, [facility] V28) SEDIMENTATION RATE Routine 01/02/2025 7: 43 AM EDT SLE (systemic lupus erythematosus related syndrome) ([facility] V24, [facility] V28) PROTHROMBIN TIME WITH INR STAT 01/02/2025 7:43 AM EDT Antiphospholipid syndrome ([facility] V24) History of pulmonary embolism Factor V Leiden ([facility] V24) Protein S deficiency ([facility] V24) MG MAMMO DIGITAL SCREENING W JAKE BILAT Routine 03/20/2024 10:20 AM EST Breast cancer screening by mammogram HPV MRNA E6 E7, WITH REFLEX TO GENOTYPE 16 AND 18,45 Routine 02/22/2024 3:47 PM EST Encounter for gynecological examination without abnormal finding COLONOSCOPY Routine 07/14/2023 12:08 PM EDT Encounter for colorectal cancer screening HEPATITIS C ANTIBODY SCREEN Routine 08/26/2022 9:18 AM EDT SLE (systemic lupus erythematosus related syndrome) ([facility] V24, [facility] V28) High risk medication use HM HIV SCREENING Routine 04/30/2020 from Last 3 Months or Most Recently Relevant to Health Maintenance Results * (ABNORMAL) Prothrombin time with INR (01/31/2025 11:34 AM EDT) Only the most recent of2 resultswithin the time period is included. [facility] Protime 26.9(H) 10.6 - 13.9 sec LAB COAGULATION METHOD 01/31/2025 12:15 PM EDT [facility] INR 2.2 LAB COAGULATION METHOD 01/31/2025 12:15 PM [facility] Blood Venous blood specimen / Unknown Venipuncture / Unknown 01/31/2025 11:34 AM EDT 01/31/2025 11:34 AM EDT us Carlito Pelaez MD LAB BLOOD ORDERABLES F inal Result [facility] [address] [place] [address], [place] [phone] * (ABNORMAL) Lipid panel with reflex to direct LDL (01/02/2025 7:43 AM EDT) [facility] Cholesterol 204(H) 0 - 200 mg/dL LAB CHEMISTRY METHOD 01/02/2025 11:30 AM [facility] Triglycerides 164(H) 0 - 150 mg/dL LAB CHEMISTRY METHOD 01/02/2025 11:30 AM [facility] HDL 84 >=40 mg/dL LAB CHEMISTRY METHOD 01/02/2025 11:30 AM [facility] LDL Calculated 87 0 - 100 mg/dL LAB CHEMISTRY METHOD 01/02/2025 11:30 AM T [facility] Comment:Estimated LDL Calcul ated using equation: Total cholesterol - HDL cholesterol - (Triglycerides/5) VLDL Cholesterol Mauri 32.8 mg/dL LAB CHEMISTRY METHOD 01/02/2025 11:30 AM [facility] Non HDL Chol. (LDL+VLDL) 120 <145 mg/dL LAB CHEMISTRY METHOD 01/02/2025 11:30 AM [facility] Chol/HDL Ratio 2.4 0.0 - 4.4 LAB CHEMISTRY METHOD 01/02/2025 11:30 AM EDT [facility] Blood Venous blood specimen / Unknown Venipuncture / Unknown 01/02/2025 7:43 AM EDT 01/02/2025 7:43 AM EDT us Kesha Sravan HERRERA LAB BLOOD ORDERABLES Final Resul t [facility] [address] [place] [address], * (ABNORMAL) CBC auto differential (01/02/2025 7:43 AM EDT) WBC 7.1 4.8 - 10.8 K/mcL LAB HEMETOLOGY METHOD 01/02/2025 10:23 AM EDT [facility] RBC 4.70 3.80 - 4.80 M/mcL LAB HEMETOLOGY METHOD 01/02/2025 10:23 AM EDT [facility] Hemoglobin 12.9 11.5 - 16.0 g/dL LAB HEMETOLOGY METHOD 01/02/2025 10:23 AM T [facility] Hematocrit 41.6 35.0 - 47.0 % LAB HEMETOLOGY METHOD 01/02/2025 10:23 AM T [facility] MCV 88.5 79.0 - 98.0 FL LAB HEMETOLOGY METHOD 01/02/2025 10:23 AM EDT [facility] MCH 27.4 27.0 - 32.0 pcg LAB HEMETOLOGY METHOD 01/02/2025 10:23 AM T [facility] MCHC 31.0(L) 32.0 - 37.0 g/dL LAB HEMETOLOGY METHOD 01/02/2025 10:23 AM [facility] RDW 14.2 11.0 - 15.0 % LAB HEMETOLOGY METHOD 01/02/2025 10:23 AM [facility] Platelets 259 130 - 400 K/mcL LAB HEMETOLOGY METHOD 01/02/2025 10:23 AM [facility] MPV 10.7 7.0 - 11.0 FL LAB HEMETOLOGY METHOD 01/02/2025 10:23 AM [facility] NRBC 0.0 <1.0 % LAB HEMETOLOGY METHOD 01/02/2025 10:23 AM [facility] NRBC Absolute 0.00 <0.10 K/mcL LAB HEMETOLOGY METHOD 01/02/2025 10:23 AM [facility] Neutrophils Relative 55.4 % LAB HEMETOLOGY METHOD 01/02/2025 10:23 AM [facility] Lymphocytes Relative 31.7 % LAB HEMETOLOGY METHOD 01/02/2025 10:23 AM [facility] Monocytes Relative 9.8 % LAB HEMETOLOGY METHOD 01/02/2025 10:23 AM [facility] Eosinophils Relative 2.1 % LAB HEMETOLOGY METHOD 01/02/2025 10:23 AM [facility] Basophils Relative 0.6 % LAB HEMETOLOGY METHOD 01/02/2025 10:23 AM [facility] Immature Granulocytes Relative 0.4 % LAB HEMETOLOGY METHOD 01/02/2025 10:23 AM [facility] Neutrophils Absolute 3.94 1.50 - 7.00 K/mcL LAB HEMETOLOGY METHOD 01/02/2025 10:23 AM [facility] Lymphocytes Absolute 2.26 1.00 - 5.00 K/mcL LAB HEMETOLOGY METHOD 01/02/2025 10:23 AM [facility] Monocytes Absolute 0.70 0.20 - 1.00 K/mcL LAB HEMETOLOGY METHOD 01/02/2025 10:23 AM EDT [facility] Eosinophils Absolute 0.15 0.00 - 0.50 K/mcL LAB HEMETOLOGY METHOD 01/02/2025 10:23 AM EDT [facility] Basophils Absolute 0.04 0.00 - 0.20 K/mcL LAB HEMETOLOGY METHOD 01/02/2025 10:23 AM EDT [facility] Immature Granulocytes Absolute 0.03 0.00 - 0.03 K/[facility] LAB HEMETOLOGY METHOD 01/02/2025 10:23 AM EDT [facility] Blood Venous blood specimen / Unknown Venipuncture / Unknown 01/02/2025 7:43 AM EDT 01/02/2025 7:43 AM EDT us Kesha Hinson PA LAB BLOOD ORDERABLES Final Resul t Performing Organization Address City/[facility]/ZIP Co de Phone Number [facility] [address] [place] [address], [place] [phone] * Protein and creatinine with ratio, urine (01/02/2025 7:43 AM EDT) Protein, Urine 7 mg/dL LAB CHEMISTRY METHOD 01/02/2025 11:35 AM EDT [facility] Prot/Creat, Ur 0.18 <=0.20 mg/mg creat LAB CHEMISTRY METHOD 01/02/2025 11:35 AM EDT [facility] Creatinine, Urine 39.0 mg/dL LAB CHEMISTRY METHOD 01/02/2025 11:35 AM EDT [facility] Urine Urine specimen obtained by clean catch procedure / Unknown Non-blood Collection / Unknown 01/02/2025 7:43 AM EDT 01/02/2025 7:43 AM EDT us Kesha Hinson PA LAB URINE ORDERABLES Final Resul t Performing Organization Address City/[facility]/ZIP Co de Phone Number [facility] [address] [place] [address], [place] [phone] * DNA antibody, double-stranded (01/02/2025 7:43 AM EDT) [facility] Anti-DNA Double Stranded Antibody Negative Negative LAB CHEMISTRY METHOD 01/06/2025 12:57 PM EDT [facility] ds DNA Ab 102 <=200 I Unit/mL LAB CHEMISTRY METHOD 01/06/2025 12:57 PM EDT [facility] Blood Venous blood specimen / Unknown Venipuncture / Unknown 01/02/2025 7:43 AM EDT 01/02/2025 7:43 AM EDT us Kesha Hinson PA LAB BLOOD ORDERABLES Final Resul t Performing Organization Address City/[facility]/ZIP Co de Phone Number [facility] [address] [place] [address], [place] [phone] * (ABNORMAL) Sedimentation rate (01/02/2025 7:43 AM EDT) [facility] Sed Rate 39(H) 0 - 30 mm/hr LAB HEMETOLOGY METHOD 01/02/2025 10:19 AM EDT [facility] Blood Venous blood specimen / Unknown Venipuncture / Unknown 01/02/2025 7:43 AM EDT 01/02/2025 7:43 AM EDT us Kesha Hinson PA LAB BLOOD ORDERABLES Final Resul t [facility] [address] [place] [address], [place] [phone] * C3 complement (01/02/2025 7:43 AM EDT) [facility] C3 Complement 144 88 - 201 mg/dL LAB CHEMISTRY METHOD 01/02/2025 11:26 AM EDT [facility] Blood Venous blood specimen / Unknown Venipuncture / Unknown 01/02/2025 7:43 AM EDT 01/02/2025 7:43 AM EDT us Kesha Hinson PA LAB BLOOD ORDERABLES Final Resul t Performing Organization Address [facility] Co de Phone Number [facility] [address] [place] [address], [place] [phone] * C4 complement (01/02/2025 7:43 AM EDT) C4 Complement 31 16 - 47 mg/dL LAB CHEMISTRY METHOD 01/02/2025 11:25 AM EDT [facility] Blood Venous blood specimen / Unknown Venipuncture / Unknown 01/02/2025 7:43 AM EDT 01/02/2025 7:43 AM EDT us Kesha HERRERA LAB BLOOD ORDERABLES Final Resul t Performing Organization Address [facility] de Phone Number [facility] [address] [place] [address], [place] [phone] * (ABNORMAL) C-reactive protein (01/02/2025 7:43 AM EDT) C-Reactive Protein 0.62(H) <=0.50 mg/dL LAB CHEMISTRY METHOD 01/02/2025 11:25 AM EDT [facility] Blood Venous blood specimen / Unknown Venipuncture / Unknown 01/02/2025 7:43 AM EDT 01/02/2025 7:43 AM EDT us Kesha HERRERA LAB BLOOD ORDERABLES Final Resul t Performing Organization Address City/[facility]/ZIP Co de Phone Number [facility] [address] [place] [address], [place] [phone] * Hemoglobin A1c (01/02/2025 7:43 AM EDT) [facility] Hemoglobin A1C 5.4 <6.5 % LAB CHEMISTRY METHOD 01/02/2025 11:53 AM T [facility] Mean Bld Glu Estim. 108 mg/dL LAB CHEMISTRY METHOD 01/02/2025 11:53 AM [facility] Blood Venous blood specimen / Unknown Venipuncture / Unknown 01/02/2025 7:43 AM EDT 01/02/2025 7:43 AM EDT us Kesha Sravan PA LAB BLOOD ORDERABLES Final Resul t [facility] [address] [place] [address], * Comprehensive metabolic panel (01/02/2025 7:43 AM EDT) [facility] Sodium 136 133 - 145 mmol/L LAB CHEMISTRY METHOD 01/02/2025 11:25 AM [facility] Potassium 3.5 3.5 - 5.5 mmol/L LAB CHEMISTRY METHOD 01/02/2025 11:25 AM [facility] Chloride 102 96 - 110 mmol/L LAB CHEMISTRY METHOD 01/02/2025 11:25 AM [facility] CO2 27 21 - 32 mmol/L LAB CHEMISTRY METHOD 01/02/2025 11:25 AM [facility] Anion Gap 7 3 - 11 LAB CHEMISTRY METHOD 01/02/2025 11:25 AM [facility] Glucose 89 70 - 100 mg/dL LAB CHEMISTRY METHOD 01/02/2025 11:25 AM [facility] BUN 16 5 - 25 mg/dL LAB CHEMISTRY METHOD 01/02/2025 11:25 AM [facility] Creatinine 0.63 0.50 - 1.10 mg/dL LAB CHEMISTRY METHOD 01/02[facility]25 [facility] eGFR 108 >=60 mL/min/1. 73m2 LAB CHEMISTRY METHOD 01/02/2025 11:25 AM [facility] Comment:Calculation based on the Chronic Kidney Disease Epidemiology Collaboration (CKD-EPI) equation refit without adjustment for race. BUN/Creatinine Ratio 25.4 LAB CHEMISTRY METHOD 01/02/2025 11:25 AM [facility] Calcium 9.0 8.5 - 10.5 mg/dL LAB CHEMISTRY METHOD 01/02/2025 11:25 AM [facility] AST (SGOT) 16 10 - 42 unit/L LAB CHEMISTRY METHOD 01/02/2025 11:25 AM [facility] ALT (SGPT) 26 10 - 60 unit/L LAB CHEMISTRY METHOD 01/02/2025 11:25 AM [facility] Alkaline Phosphatase 82 42 - 121 unit/L LAB CHEMISTRY METHOD 01/02/2025 11:25 AM [facility] Total Protein 6.9 6.0 - 8.0 g/dL LAB CHEMISTRY METHOD 01/02/2025 11:25 AM [facility] Albumin 4.0 3.2 - 5.0 g/dL LAB CHEMISTRY METHOD 01/02/2025 11:25 AM [facility] Total Bilirubin 0.6 0.0 - 1.4 mg/dL LAB CHEMISTRY METHOD 01/02/2025 11:25 AM [facility] Blood Venous blood specimen / Unknown Venipuncture / Unknown 01/02/2025 7:43 AM EDT 01/02/2025 7:43 AM EDT us Kesha HERRERA LAB BLOOD ORDERABLES Final Resul t [facility] [address] [place] [address], [place] [phone] * MG Mammo Digital Screening w Jake bilat (03/20/2024 10:20 AM EST) Anatomical Region Laterality Modality Breast Bilateral Mammography 03/21/2024 12:4 4 PM EST Impressions 03/21/2024 12:45 PM EST Stable mammographic findings. There is no evidence of malignancy. BI-RADS CODE: 2 - BENIGN RECOMMENDATION: Screening bilateral mammogram is recommended in 1 year. COMMENTS: Patient information entered into a reminder system with a target due date for the next Mammogram. A. A negative x-ray report should not delay biopsy if a dominant or clinically suspicious mass is present. B. A small percentage (probably less than 10%) of cancers will not be identified by x-ray, and there will be a similar small percentage of false-positive reports. C. Adenosis and dense breasts may obscure underlying neoplasm -------- FINAL REPORT -------- Dictated By: Sergey Estrada Dictated Date: 03/21/2024 12:44 ET Assigned Physician: Sergey Estrada Reviewed and Electronically Signed By: Sergey Estrada Signed Date: 03/21/2024 12:45 ET Workstation ID: [id number] Transcribed By: Self Edit Transcribed Date: 03/21/2024 12:44 ET Narrative 03/21/2024 12:45 PM EST Viki Jasmine [facility] at [facility]. [address], [address]. [phone]. EXAMINATION TYPE: MG MAMMO DIGITAL SCREENING W JAKE BILAT DATE OF EXAM: 03/20/2024 9:58 AM REASON FOR STUDY: Breast cancer screen, avg risk, asymptomatic (Age => 40y), asymptomatic TECHNIQUE: Digital Mammographic Tomosynthesis was performed. 2D images are generated with a C view. Current study was also evaluated with a Computer Aided Detection (CAD) system. Comparison: 2022--2021. BREAST COMPOSITION: B - There are scattered areas of fibroglandular density. MIGUEL A MCGOVERN VERSION 8 calculations based on the information the patient provided, this patient's lifetime risk for developing breast cancer is <15%. (Average risk <15%; intermediate/moderate risk 15-19%; high risk >= 20%). MAMMOGRAM FINDINGS: No suspicious masses, microcalcifications or areas of architectural distortion. No nipple retraction or skin thickening. Benign calcifications. Procedure Note Sergey Estrada MD - 03/21/2024 Viki Jasmine C at [facility]. [address], [place], [place], [address]. [phone]. EXAMINATION TYPE: MG MAMMO DIGITAL SCREENING W JAKE BILAT DATE OF EXAM: 03/20/2024 9:58 AM REASON FOR STUDY: Breast cancer screen, avg risk, asymptomatic (Age =>40y), asymptomatic TECHNIQUE: Digital Mammographic Tomosynthesis was performed. 2D images aregenerated with a C view. Current study was also evaluated with a ComputerAided Detection (CAD) system. Comparison: 2022--2021. BREAST COMPOSITION: B - There are scattered areas of fibroglandulardensity. KIDOZZICK VERSION 8 calculations based on the information the patientprovided, this patient's lifetime risk for developing breast cancer is<15%. (Average risk <15%; intermediate/moderate risk 15-19%; high risk >=20%). MAMMOGRAM FINDINGS: No suspicious masses, microcalcifications or areas ofarchitectural distortion. No nipple retraction or skin thickening.Benign calcifications. IMPRESSION: Stable mammographic findings. There is no evidence of malignancy. BI-RADS CODE: 2 - BENIGN RECOMMENDATION: Screening bilateral mammogram is recommended in 1 year. COMMENTS: Patient information entered into a reminder system with a target due datefor the next Mammogram. A. A negative x-ray report should not delay biopsy if a dominant orclinically suspicious mass is present. B. A small percentage (probably less than 10%) of cancers will not beidentified by x-ray, and there will be a similar small percentage offalse-positive reports. C. Adenosis and dense breasts may obscure underlying neoplasm -------- FINAL REPORT -------- Dictated By: Sergey Estrada Dictated Date: 03/21/2024 12:44 ET Assigned Physician: Sergey Estrada Reviewed and Electronically Signed By: Sergey Estrada Signed Date: 03/21/2024 12:45 ET Workstation ID: [id number] Transcribed By: Self Edit Transcribed Date: 03/21/2024 12:44 ET us Gabo Wooten MD IMG BI PROCEDURES Final Resu lt * HPV mrna E6 E7, with reflex to genotype 16 and 18,45 (02/22/2024 3:47 PM EST) HPV mRNA E6/E7 Not Detected NOT DETECTED 02/26/2024 10:47 AM EST [facility] Comment: Methodology: Insurance Rater-Mediated Amplification This assay detects E6/E7 viral messenger RNA (mRNA) from 14 high-risk HPV types (16,18,31,33,35,39,45,51, 52,56,58,59,66,68). For additional information please refer to http://education.[employer]/faq/ZOA301e9 (This link is being provided for informational/ educational purposes only.) Cervical sources are required for HPV testing. If a vaginal source from a patient who has had a total hysterectomy with removal of cervix was submitted, please contact the testing laboratory for alternative testing options. The analytical performance characteristics of this assay have been determined by [facility] [place], [place]. The modifications have not been cleared or approved by the FDA. This assay has been validated pursuant to the CLIA regulations and is used for clinical purposes. Additional Testing Not indicated 02/26/2024 10:47 AM EST [facility] Brushing/Spatula Cervix uteri structure / Unknown 02/22/2024 3:47 PM EST 02/23/2024 9:11 AM EST Narrative [facility] - 02/26/2024 10:47 AM EST Performing Organization Information: Site ID: AMD Name: [facility] Address: [address] [place] [address] Director: Hilario Cummings MD PhD us Gabo Wooten MD LAB MOLECULAR DIAGNOSTICS OR DERABLES Final Result [facility] [place] [id number] [place], [place] [phone] * COLONOSCOPY Anesthesia - MAC; FL ENDOSCOPY (07/14/2023 12:08 PM EDT) Anatomical Region Laterality Modality Other 07/14/2023 11:3 0 AM EDT Impressions 07/14/2023 12:30 PM EDT - Normal mucosa in the entire examined colon. - Non-bleeding internal hemorrhoids. - No specimens collected. Recommendation: - Discharge patient to home. - Resume previous diet. - Continue present medications. - Repeat colonoscopy in 10 years for screening purposes. - Return to referring physician as previously scheduled. Narrative 07/14/2023 12:30 PM EDT [facility] Endoscopy Patient Name: Missy Norwood Procedure Date: 07/14/2023 11:30 AM Date of : 1975 Age: 47 Procedure: Colonoscopy Indications: Screening for colorectal malignant neoplasm Patient Profile: This is a 47 year old female. Refer to note in patient chart for documentation of history and physical. Providers: Nabil Naylor MD, Morelia Owens RN, Lou Patiño MD (Anesthesia Staff) Referring MD: Nabil Naylor MD Requesting Provider: Medicines: Monitored Anesthesia Care Complications: No immediate complications. Procedure: Pre-Anesthesia Assessment: - Prior to the procedure, a History and Physical was performed, and patient medications and allergies were reviewed. The risks and benefits of the procedure and the sedation options and risks were discussed with the patient. All questions were answered and informed consent was obtained. Patient identification and proposed procedure were verified by the physician in the pre-procedure area. Mental Status Examination: alert and oriented. Airway Examination: normal oropharyngeal airway and neck mobility. Respiratory Examination: clear to auscultation. CV Examination: normal. Prophylactic Antibiotics: The patient does not require prophylactic antibiotics. Prior Anticoagulants: The patient has taken no anticoagulant or antiplatelet agents. ASA Grade Assessment: II - A patient with mild systemic disease. After reviewing the risks and benefits, the patient was deemed in satisfactory condition to undergo the procedure. The anesthesia plan was to use monitored anesthesia care (MAC). Immediately prior to administration of medications, the patient was re-assessed for adequacy to receive sedatives. The heart rate, respiratory rate, oxygen saturations, blood pressure, adequacy of pulmonary ventilation, and response to care were monitored throughout the procedure. The physical status of the patient was re-assessed after the procedure. After I obtained informed consent, the scope was passed under direct vision. Throughout the procedure, the patient's blood pressure, pulse, and oxygen saturations were monitored continuously. The Olympus Colonoscope was introduced through the anus and advanced to the cecum, identified by appendiceal orifice and ileocecal valve. The quality of the bowel preparation was evaluated using the BBPS (Orange Bowel Preparation Scale) with scores of: Right Colon = 3, Transverse Colon = 3 and Left Colon = 3 (entire mucosa seen well with no residual staining, small fragments of stool or opaque liquid). The total BBPS score equals 9. The quality of the bowel preparation was excellent. Findings: Normal mucosa was found in the entire colon. Non-bleeding internal hemorrhoids were found. The hemorrhoids were Grade I (internal hemorrhoids that do not prolapse). Procedure Code(s): --- Professional --- 87632, Colonoscopy, flexible; diagnostic, including collection of specimen(s) by brushing or washing, when performed (separate procedure) Diagnosis Code(s): --- Professional --- Z12.11, Encounter for screening for malignant neoplasm of colon K64.0, First degree hemorrhoids CPT copyright 2020 [employer]. All rights reserved. The codes documented in this report are preliminary and upon heavy equipment sales associate review may be revised to meet current compliance requirements. Attending Participation: I personally performed the entire procedure. Nabil Naylor MD 07/14/2023 12:30:10 PM Number of Addenda: 0 Note Initiated On: 07/14/2023 11:30 AM Scope Withdrawal Time 0 hours 11 minutes 47 seconds Total Procedure Duration Time 0 hours 20 minutes 49 seconds Procedure Note Nabil Naylor MD - 07/14/2023 [facility] Endoscopy Patient Name: Missy Norwood Procedure Date: 07/14/2023 11:30 AM Date of : 1975 Age: 47 Procedure: Colonoscopy Indications: Screening for colorectal malignant neoplasm Patient Profile: This is a 47 year old female. Refer to note inpatient chart for documentation of history and physical. Providers: Nabil Naylor MD, Morelia Owens RN,Lou Patiño MD (Anesthesia Staff) Referring MD: Nabil Naylor MD Requesting Provider: Medicines: Monitored Anesthesia Care Complications: No immediate complications. Procedure: Pre-Anesthesia Assessment: - Prior to the procedure, a History and Physicalwas performed, and patient medications and allergieswere reviewed. The risks and benefits of the procedureand the sedation options and risks were discussed withthe patient. All questions were answered and informed consent was obtained. Patient identification and proposed procedure were verified by the physicianin the pre-procedure area. Mental Status Examination: alert and oriented. Airway Examination: normal oropharyngeal airway and neck mobility. Respiratory Examination: clear to auscultation. CV Examination: normal. Prophylactic Antibiotics: The patient doesnot require prophylactic antibiotics. Prior Anticoagulants: The patient has taken noanticoagulant or antiplatelet agents. ASA Grade Assessment: II -A patient with mild systemic disease. After reviewing the risks and benefits, the patient was deemed in satisfactory condition to undergo the procedure.The anesthesia plan was to use monitored anesthesiacare (MAC). Immediately prior to administration of medications, the patient was re-assessed foradequacy to receive sedatives. The heart rate, respiratory rate, oxygen saturations, blood pressure, adequacyof pulmonary ventilation, and response to care were monitored throughout the procedure. The physical status of the patient was re-assessed after the procedure. After I obtained informed consent, the scope was passed under direct vision. Throughout theprocedure, the patient's blood pressure, pulse, and oxygen saturations were monitored continuously. TheOlympus Colonoscope was introduced through the anus and advanced to the cecum, identified by appendiceal orifice and ileocecal valve. The quality of thebowel preparation was evaluated using the BBPS (BostonBowel Preparation Scale) with scores of: Right Colon = 3, Transverse Colon = 3 and Left Colon = 3 (entiremucosa seen well with no residual staining, smallfragments of stool or opaque liquid). The total BBPS score equals 9. The quality of the bowel preparation was excellent. Findings: Normal mucosa was found in the entire colon. Non-bleeding internal hemorrhoids were found. The hemorrhoids wereGrade I (internal hemorrhoids that do not prolapse). Procedure Code(s): --- Professional --- 41806, Colonoscopy, flexible; diagnostic, including collection of specimen(s) by brushing or washing,when performed (separate procedure) Diagnosis Code(s): --- Professional --- Z12.11, Encounter for screening for malignantneoplasm of colon K64.0, First degree hemorrhoids CPT copyright 2020 [employer]. All rights reserved. The codes documented in this report are preliminary and upon heavy equipment sales associate reviewmay be revised to meet current compliance requirements. Attending Participation: I personally performed the entire procedure. Nabil Naylor MD 07/14/2023 12:30:10 PM Number of Addenda: 0 Note Initiated On: 07/14/2023 11:30 AM Scope Withdrawal Time 0 hours 11 minutes 47 seconds Total Procedure Duration Time 0 hours 20 minutes 49 seconds IMPRESSION: - Normal mucosa in the entire examined colon. - Non-bleeding internal hemorrhoids. - No specimens collected. Recommendation: - Discharge patient to home. - Resume previous diet. - Continue present medications. - Repeat colonoscopy in 10 years for screening purposes. - Return to referring physician as previously scheduled. Nabil Naylor MD GI~PROCEDURE ORDERABLES Final Result * Hepatitis C antibody screen (08/26/2022 9:18 AM EDT) Hepatitis C Antibody Nonreactive Nonreactive LAB CHEMISTRY METHOD 08/26/2022 2:33 PM EDT [facility] Blood Venous blood specimen / Unknown Venipuncture / Unknown 08/26/2022 9:18 AM EDT 08/26/2022 9:18 AM EDT Narrative [facility] - 08/26/2022 2:33 PM EDT Values obtained with different assay methods cannot be used interchangeably. This test was performed by the [employer] Chemiluminescent method. us Pili Caba MD LAB BLOOD ORDERABLES Final Result [facility] [address] [place] [address], [place] [phone] * HIV Screening (04/30/2020) [facility] HIV Screening abstracted us Historical Provider HEALTH MAINTENANCE Final Result from Last 3 Months or Most Recently Relevant to Health Maintenance Insurance [facility] Care Teams Manager Underwriting Relationship Specialty Start Date End Date Carlito Pelaez MD [address], [place] PCP - General Internal Medicine 09/05/24
== END 2025-02-13 15:33 | disposition home or self-care (01) ==
LOC: HO.HKA 15:06
PROVIDERS: PCP Physician Assistant; Visit Provider Internal Medicine Hypertension Specialist
DX: M32.9 Systemic lupus erythematosus, unspecified (principal)
CPT/HCPCS: 99204